=== PATIENT | female | born 1980 | race Caucasian/White ===

== ENCOUNTER 2016-05-18 06:40 | Emergency (ER) | payer OTHER ==
[2016-05-18 07:39] LABS: URINE BILIRUBIN NEGATIVE (NEGATIVE); URINE BLOOD 4+ (NEGATIVE); URINE GLUCOSE (UA) NEGATIVE (NEGATIVE); URINE LEUKOCYTE ESTERASE TRACE (NEGATIVE); URINE NITRITE NEGATIVE (NEGATIVE); URINE PROTEIN TRACE (NEGATIVE); URINE UROBILINOGEN NORMAL (0-1 mg/dl)
[2016-05-18 07:41] LABS: URINE COLOR AMBER
[2016-05-18 07:42] LABS: URINE APPEARANCE SL CLOUDY
[2016-05-18 08:07] LABS: URINE BACTERIA TRACE; URINE RBC >100 /hpf; URINE WBC RARE /hpf
--- NOTE | 2016-05-18 08:13 | CT ---
CT ABDOMEN AND PELVIS WITHOUT CONTRAST HISTORY: Right flank pain and burning. TECHNIQUE: No intravenous contrast administered; contiguous axial images were acquired from the lung bases to the ischial tuberosities. Oral contrast was not administered. COMPARISON: 01/18/2015. FINDINGS: LUNG BASES: No gross airspace consolidation or pleural effusion. LIVER: No focal mass effect. SPLEEN: No focal mass effect. PANCREAS: No focal mass effect. ADRENAL GLANDS: No mass effect. KIDNEYS: No renal calculi. No collecting system dilatation. GALLBLADDER: Present. BOWEL: Moderate fecal loading. Limited assessment of the distal colon due to decompression. No abnormal small bowel dilatation. APPENDIX: Normal gas-filled appendix. PELVIC ORGANS: 2.6 cm left adnexal cyst. Left-sided cysts up to 2 cm were noted previously. FREE FLUID: No gross free fluid identified. ABDOMINOPELVIC LYMPH NODES: No abnormally enlarged lymph nodes identified. ABDOMINAL AORTA: Normal caliber. OSSEOUS STRUCTURES: Findings of lower lumbar disc degeneration, central protrusion at L4-5. No destructive lesions. IMPRESSION: 1. No evidence of urolithiasis or upper urinary tract obstruction. The current study does not exclude early pyelonephritis. 2. 2.6 cm left adnexal cyst. 3. Early changes of lumbar disc degeneration. Results were electronically transmitted to the electronic medical record at 05/18/2016 at 0808 hours.
== END 2016-05-18 09:08 | disposition home or self-care (01) ==
LOC: ED 06:40
DX: R10.9 Unspecified abdominal pain (principal); E03.9 Hypothyroidism, unspecified